=== PATIENT | male | born 2000 | race Two or more races ===

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

== ENCOUNTER 2025-02-06 06:20 | Emergency (ER) | payer BC, SELFPAY ==
[2025-02-06 06:21] VITALS: BMI 29.0
[2025-02-06 06:45] VITALS: BP 145/100; PULSE 77; RESP 20; TEMP 36.6; O2SAT 97
--- NOTE | 2025-02-06 06:46 | XR_ITS ---
Examination: CT abdomen and pelvis without contrast. Coronal 3-D reconstructions. Sagittal 2-D reconstructions. Date and time of exam:February 06, 2025 at 0715 hours INDICATIONS: Onset left-sided flank pain beginning yesterday CTDI: vol (mGy): 7.24 DLP: (mGycm): 450 Technique: Axial images of the abdomen have been obtained, 3 mm slice thickness Intravenous contrast material has not been administered. Low dose protocols were performed. One or more of the following dose reduction techniques were used; automated exposure control, adjustment of the mA and/or KV according to patient size, use of iterative reconstruction technique. Findings: No focal liver or splenic lesions No gallstones No pancreatic or adrenal mass 2 mm lower pole left renal calculus Mild left hydronephrosis, 2 mm proximal left ureteral calculus. No pericecal inflammatory change Urinary bladder wall thickening up to 8 mm Prostate calcification IMPRESSION: Mild left hydronephrosis secondary to 2 mm proximal left ureteral calculus
--- NOTE | 2025-02-06 06:47 | PD.EDRME ---
Rapid Medical Screening Exam RME Arrival date/time: 02/06/25 06:20 24-year-old male presents to the emerged part today complaints of left-sided back pain and left side abdominal pain Chief Complaint: Back Pain/Injury Vital signs: Vital Signs Temperature 97.8 F 02/06/25 06:45 Pulse Rate 77 02/06/25 06:45 Respiratory Rate 20 02/06/25 06:45 Blood Pressure 145/100 H 02/06/25 06:45 Pulse Oximetry (%) 97 02/06/25 06:45 Oxygen Delivery Method Room Air 02/06/25 06:45
[2025-02-06] MEDS: KETOROLAC INJ 30 MG/ML VIAL IM ×2 (07:10→10:48)
[2025-02-06] MEDS: HYDROcodone/APAP 5/325 TABLET 1 TAB PO ×2 (07:10→10:48)
[2025-02-06] MEDS: ONDANSETRON ODT 4 MG TABRAP PO (07:10)
[2025-02-06 07:44] LABS: Basophils # (Auto) 0.1 Thou/mm3 (0.0-0.2); Basophils % (Auto) 1 % (0-2.5); Eosinophils % (Auto) 0 % (0-10); Hematocrit 41.6 % (41.0-53.0); Hemoglobin 15.1 g/dL (13.5-16.0); Immature Granulocytes % (Auto) 1 % (0-0); Immature Granulocytes Auto 0.12 Thou/mm3 (0.00-0.00); Lymphocytes # (Auto) 1.7 Thou/mm3 (1.0-4.8); Lymphocytes % (Auto) 16 % (10-50); Mean Corpuscular HGB Conc 36.3 g/dl (31.0-37.0); Mean Corpuscular Hemoglobin 31.5 pg (25.0-35.0); Mean Corpuscular Volume 87 fL (80-100); Monocytes # (Auto) 0.7 Thou/mm3 (0.0-0.8); Monocytes % (Auto) 7 % (0-12); Neutrophils # (Auto) 7.9 Thou/mm3 (1.8-7.7); Neutrophils % (Auto) 75 % (37-80); Nucleated Red Blood Cell % 0 /100 WBC (0); Platelet Count 269 Thou/mm3 (140-440); RDW Standard Deviation 37.6 fL (35.1-43.9); Red Blood Count 4.79 Miln/mm3 (4.50-5.90); White Blood Count 10.6 Thou/mm3 (3.8-10.6)
[2025-02-06 07:56] LABS: Alanine Aminotransferase 46 U/L (10-49); Albumin, Serum 4.9 gm/dL (3.5-5.0); Albumin/Globulin Ratio 1.6 (1.2-2.2); Alkaline Phosphatase 71 U/L (46-116); Anion Gap 11 (7-16); Aspartate Amino Transferase 22 U/L (0-34); BUN/Creatinine Ratio 8 Ratio (12-20); Blood Urea Nitrogen 9 mg/dL (9-23); Calcium 9.6 mg/dL (8.3-10.6); Calcium (Corrected) 9.6 mg/dL (8.5-10.1); Carbon Dioxide 26.2 mMol/L (20.0-31.0); Chloride 102 mMol/L (98-107); Creatinine (Component) 1.1 mg/dL (0.6-1.3); Estimated Creatinine Clearance 103.9 mL/min (>60); Glucose 103 mg/dL (74-106); Lipase 40 U/L (12-53); Osmolality,Calculated 276 (275-295); Potassium 3.7 mMol/L (3.4-5.1); Sodium 139 mMol/L (136-145); Total Protein 7.9 gm/dL (5.7-8.2); eGFR > 60 See Note
[2025-02-06 08:21] VITALS: BP 138/98
[2025-02-06] MEDS: METOCLOPRAMIDE INJ 5 MG/ML VIAL 2 ML 10 MG IM (08:37)
[2025-02-06 10:18] VITALS: BP 162/102; PULSE 77; RESP 18; TEMP 36.5; O2SAT 100
[2025-02-06 11:09] LABS: Collection Type, Urine Clean Catch
[2025-02-06 11:26] LABS: Bacteria,Urine Rare; Bilirubin,Urine Negative (Negative); Blood,Urine 3+ (Negative); Clarity,Urine Turbid (Clear/Hazy); Color,Urine Yellow (Lt Yel-Yel); Culture Indicated,Urine Not Indicated; Glucose, Urine Negative (Negative); Ketones,Urine Negative (Negative); Leukocyte Esterase,Urine Negative (Negative); Nitrite,Urine Negative (Negative); PH,Urine 6.5 (5.0-7.0); Protein,Urine 1+ (Neg - Trace); RBC,Urine 221 /hpf (0-3); Specific Gravity,Urine 1.026 (1.001-1.035); Squamous Epithelial Cell,Urine < 1 /hpf (0-5); Urobilinogen,Urine Negative mg/dL (0.0-1.0); WBC,Urine 2 /hpf (0-5)
[2025-02-06 11:27] LABS: Amphetamine/Methamp Scrn,U Negative (Negative); Barbiturate Screen,Urine Negative (Negative); Benzodiazepines Screen,Urine Negative (Negative); Benzoylecgonine Screen, Ur Positive (Negative); Fentanyl Screen,Urine Negative (Negative); Opiate Screen,Urine Positive (Negative); THC Screen,Urine Positive (Negative)
--- NOTE | 2025-02-06 11:34 | EDNOTE_ITS ---
ED Back Injury Pain RME/HPI General Chief Complaint: Back Pain/Injury Stated Complaint: LEFT FLANK PAIN,NAUSEA, SINCE YEST Time Seen by Provider: 02/06/25 08:24 Arrival date/time: 02/06/25 06:20 24-year-old male with no significant medical problems presents to the emergency department today complaints of left-sided flank pain patient reports nausea vomiting body aches. Patient reports no fever Limitations: no limitations RME / HPI RME / HPI Narrative: 02/06/25 06:20 24-year-old male presents to the emerged part today complaints of left-sided back pain and left side abdominal pain Related Data Previous Rx's ?Medication ?Instructions ?Recorded ibuprofen 600 mg tablet 600 mg PO Q6HR PRN fever or pain 11/17/19 #30 tabs hydrocodone 5 mg-acetaminophen 325 1 tab PO BID PRN pa in #10 tabs 08/19/21 mg tablet ibuprofen 800 mg tablet 800 mg PO TID PRN pain #30 t abs 08/19/21 ibuprofen 600 mg tablet 600 mg PO Q8H PRN fever or p ain 09/27/21 #30 tabs loperamide 2 mg capsule (Imodium 2 mg PO Q6H PRN loose stool #14 09/27/21 A-D) caps ibuprofen 600 mg tablet 600 mg PO TID PRN pain #30 t abs 09/28/23 ibuprofen 600 mg tablet 600 mg PO Q6H #30 tabs 12/26 ibuprofen 800 mg tablet 800 mg PO TID PRN pain #30 t abs 07/19/24 ibuprofen 600 mg tablet 600 mg PO Q6H PRN pain #30 t abs 09/07/24 hydrocodone 5 mg-acetaminophen 325 1 tab PO BID PRN pa in #10 tabs 02/06/25 mg tablet ibuprofen 800 mg tablet 800 mg PO TID PRN pain #30 t abs 02/06/25 promethazine 12.5 mg rectal 12.5 mg NH Q8HR PRN nausea and 02/06/25 suppository vomiting #12 ea tamsulosin 0.4 mg capsule (Flomax) 0.4 mg PO QDAY 14 d ays #14 caps 02/06/25 Allergies Allergy/AdvReac Type Severity Reaction Status Date / Time No Known Allergies Allergy Verified 02/06/25 06:24 Review of Systems Review of Systems Systems Reviewed: All systems reviewed, normal except as documented Constitutional Constitutional: Reports system reviewed and no additional complaints, except as documented, Denies fever(s) and Denies headache(s) Eyes Eyes: Reports system reviewed and no additional complaints, except as documented and Denies blurry vision ENT Ears, Nose, Mouth, and Throat: Reports system reviewed and no additional complaints, except as documented, Denies headache(s), Denies nasal congestion and Denies nasal discharge Cardiovascular Cardiovascular: Reports system reviewed and no additional complaints, except as documented, Denies chest pain and Denies dyspnea Respiratory Respiratory: Reports system reviewed and no additional complaints, except as documented, Denies chest congestion, Denies cough and Denies dyspnea Gastrointestinal Gastrointestinal: Reports system reviewed and no additional complaints, except as documented, Reports abdominal pain, Reports nausea, Reports vomiting and Reports other (Flank pain) Integumentary/Breasts Skin/Breast: Reports system reviewed and no additional complaints, except as documented and Denies rash Neurologic Neurologic: Reports system reviewed and no additional complaints, except as documented, Reports as per HPI and Denies headache(s) Past Medical History Past Medical History CARDIAC: Negative Congestive Heart Failure RESPIRATORY: Negative Chronic Obstructive Pulmonary Disease (COPD) GENITOURINARY: Negative Renal Disease ENDOCRINE: Negative Diabetes Mellitus Type 1 or Diabetes Mellitus Type 2 PSYCHO/SOCIAL: Positive Recreational Drug Use Social History SMOKING STATUS: Never smoker SUBSTANCE USE: marijuana and crack/cocaine (2 days ago) ED Exam General Limitations: Present no limitations General appearance: Present alert and in no apparent distress Head Head exam: Present atraumatic Eye Eye exam: Present normal appearance, PERRL and EOMI ENT ENT exam: Present normal exam, normal oropharynx and mucous membranes moist Neck Neck exam: Present normal inspection, full ROM and trachea midline Chest Chest inspection: Present normal inspection and symmetric chest wall rise Respiratory Respiratory exam: Present normal lung sounds bilaterally Cardiovascular Cardiovascular exam: Present regular rate, normal rhythm and normal heart sounds Abdominal Exam Abdominal exam: Present soft and normal bowel sounds; Absent distention, tenderness, Khanna's sign, Rovsing's sign or tenderness at McBurney's Point Abdominal tenderness: Absent RUQ or RLQ Extremities Exam Extremities exam: Present normal inspection and full ROM Back Exam Back exam: Present normal inspection and full ROM Neurological Exam Neurological exam: Present alert, oriented X3 and CN II-XII intact Psychiatric Psychiatric exam: Present normal affect and normal mood Skin Skin exam: Present warm, dry, intact and normal color Course Quality Measures none Orders Category Date Time Status Insert IV NOW Care 02/06/25 10:[address] abdomen pelvis wo con Stat Exams 02/06/25 06:46 Completed CBC Stat Lab 02/06/25 07:30 Completed Comprehensive Metabolic Panel Stat Lab 02/06/25 07:30 Completed Drug Screen,Urine Stat Lab 02/06/25 10:59 Completed Lipase Stat Lab 02/06/25 07:30 Completed UA, C/S IF [Urinalysis, C/S if Indicated] Stat Lab 02/06/25 10:59 Completed HYDROcodone*/APAP 5/325 [[place] 5/325] Med 02/06/25 06:46 Discontinued 1 tab PO X1 ONE HYDROcodone*/APAP 5/325 [[place] 5/325] Med 02/06/25 10:21 Discontinued 1 tab PO X1 ONE Ketorolac Inj [Toradol Inj] Med 02/06/25 06:46 Discontinued 30 mg IM X1 ONE Ketorolac Inj [Toradol Inj] Med 02/06/25 10:21 Discontinued 30 mg IM X1 ONE Metoclopramide Inj [Reglan Inj] Med 02/06/25 08:25 Discontinued 10 mg IM X1 ONE Ondansetron Odt [Zofran Odt] Med 02/06/25 06:46 Discontinued 4 mg PO X1 ONE Promethazine Inj [Phenergan Inj] 12.5 mg Med 02/06/25 11:50 Discontinued Sodium Chloride 0.9% [Ns] 50 ml IV X1 Sodium Chloride 0.9% 1000 ml [Ns] 1,000 ml Med 02/06/25 10:56 Discontinued IV 999 mls/hr Sodium Chloride 0.9% 1000 ml [Ns] 1,000 ml Med 02/06/25 12:19 Discontinued IV 999 mls/hr Vital Signs Vital signs: Vital Signs Temperature 97.8 F 02/06/25 06:45 Pulse Rate 77 02/06/25 06:45 Respiratory Rate 20 02/06/25 06:45 Blood Pressure 145/100 H 02/06/25 06:45 Pulse Oximetry (%) 97 02/06/25 06:45 Oxygen Delivery Method Room Air 02/06/25 06:45 O2 saturation 97% room air within normal limits Back Pain / Injury MDM Narrative MDM Narrative:: 24-year-old male with no significant medical problems presents to the emergency department today complaints of left-sided flank pain patient reports nausea vomiting body aches. Patient reports no fever Based on presentation I suspect patient has kidney stone Patient given medication for pain given IV fluids At time reevaluation patient is comfortable and patient walked out without difficulty I explained to the patient that he has a 2 mm stone overwhelming majority of people will pass a stone should he have persistent symptoms or increased pain to return immediately for further evaluation Patient data External records reviewed:: [facility] previous records Clinical information provided by:: patient Social determinants that could affect healthcare access:: none Patient has the following chronic illnesses:: None How is presenting disease/condition affected by chronic disease/condition?: no chronic disease Evaluation data The following diagnostics were reviewed and interpreted by me:: lab results and radiology exam(s) Lab and/or radiology exams considered but not ordered:: Labs radiology obtain Interpretation Summary: Reviewed by me Medications / Prescriptions Medications or Prescriptions considered but not ordered:: Given Medication administrations:: Medication Administration History Discontinued Medications Hydrocodone Bitart/Acetaminophen (Hydrocodone/Apap 5/325 Tablet) 1 tab PO X1 ONE Stop: 02/06/25 06:47 Last Admin: 02/06/25 07:10 Dose: 1 tab Documented By: EE Hydrocodone Bitart/Acetaminophen (Hydrocodone/Apap 5/325 Tablet) 1 tab PO X1 ONE Stop: 02/06/25 10:22 Last Admin: 02/06/25 10:48 Dose: 1 tab Documented By: MARILYNN Sodium Chloride (Ns) 1,000 mls @ 999 mls/hr IV .Q1H1M ONE Stop: 02/06/25 11:56 Last Infusion: 02/06/25 12:52 Dose: Infused Documented By: Admin: 02/06/25 11:38 Dose: 999 mls/hr Documented By: WILLOW Promethazine HCl 12.5 mg/ (Sodium Chloride) 50.5 mls @ 2.5 mls/min IV X1 ONE Stop: 02/06/25 12:10 Last Infusion: 02/06/25 12:25 Dose: Infused Documented By: Admin: 02/06/25 12:02 Dose: 2.5 mls/min Documented By: DB Sodium Chloride (Ns) 1,000 mls @ 999 mls/hr IV .Q1H1M ONE Stop: 02/06/25 13:19 Last Infusion: 02/06/25 13:44 Dose: Infused Documented By: Admin: 02/06/25 12:24 Dose: 999 mls/hr Documented By: WILLOW Ketorolac Tromethamine (Ketorolac Inj 30 Mg/Ml Vial) 30 mg IM X1 ONE Stop: 02/06/25 06:47 Last Admin: 02/06/25 07:10 Dose: 30 mg Documented By: HANS Ketorolac Tromethamine (Ketorolac Inj 30 Mg/Ml Vial) 30 mg IM X1 ONE Stop: 02/06/25 10:22 Last Admin: 02/06/25 10:48 Dose: 30 mg Documented By: MARILYNN Metoclopramide HCl (Metoclopramide Inj 5 Mg/Ml Vial 2 Ml) 10 mg IM X1 ONE; Protocol Stop: 02/06/25 08:26 Last Admin: 02/06/25 08:37 Dose: 10 mg Documented By: ANA CRISTINA Ondansetron HCl (Ondansetron Odt 4 Mg Tabrap) 4 mg PO X1 ONE; Protocol Stop: 02/06/25 06:47 Last Admin: 02/06/25 07:10 Dose: 4 mg Documented By: HANS Given Consultations Consultation(s) initiated? (list below): No Diagnosis Differential diagnosis back pain/injury: lumbar radiculopathy, sciatica, renal colic and pyelonephritis Most likely diagnosis given after review of the tests above:: Renal colic Admission Indicated Admission indicated?: not indicated Admission Request Was there a request for admission?: No Disposition Plan Disposition Plan: Discharge Discharge Attestation Discharge Attestation: The patient and all family members were given an opportunity to ask questions and understood the discharge instructions. Discharge instructions specifically effects, indications for sooner follow up or return to the emergency department, and the expected course of current diagnosis. Patient condition: Stable Discharge Plan Plan Patient Disposition: HOME (Self Care) Disposition Comment: Stable Prescriptions/Referrals Prescriptions/Med Rec: New ibuprofen 800 mg tablet 800 mg PO TID PRN (Reason: pain) Qty: 30 0RF hydrocodone-acetaminophen 5-325 mg tablet 1 tab PO BID MDD 10 PRN (Reason: pain) Qty: 10 0RF promethazine 12.5 mg suppository 12.5 mg NH Q8HR PRN (Reason: nausea and vomiting) Qty: 12 0RF tamsulosin [Flomax] 0.4 mg capsule 0.4 mg PO QDAY 14 Days Qty: 14 0RF No Action ibuprofen 600 mg tablet 600 mg PO Q6HR PRN (Reason: fever or pain) Qty: 30 0RF ibuprofen 800 mg tablet 800 mg PO TID PRN (Reason: pain) Qty: 30 0RF hydrocodone-acetaminophen 5-325 mg tablet 1 tab PO BID MDD 10 PRN (Reason: pain) Qty: 10 0RF ibuprofen 600 mg tablet 600 mg PO Q8H PRN (Reason: fever or pain) Qty: 30 0RF loperamide [Imodium A-D] 2 mg capsule 2 mg PO Q6H PRN (Reason: loose stool) Qty: 14 0RF ibuprofen 600 mg tablet 600 mg PO Q6H Qty: 30 0RF ibuprofen 800 mg tablet 800 mg PO TID PRN (Reason: pain) Qty: 30 0RF ibuprofen 600 mg tablet 600 mg PO TID PRN (Reason: pain) Qty: 30 0RF ibuprofen 600 mg tablet 600 mg PO Q6H PRN (Reason: pain) Qty: 30 0RF Referrals: Astrid Castellanos FNP [Primary Care Provider] - In 1 week Problem List Clinical Impression: Renal colic, Nausea & vomiting Patient/Caregiver Discharge Instructions Education Materials: ED Vomiting (Adult) Additional Instructions: Please follow up with your primary care doctor in the next 24-48hrs for any worsening symptoms return here immediately Print Language: Romanian Stand Alone Forms: Chrissy Award Info., Work/School Release, Patient Portal Info Letter DIVYA/COSME Supervising Physician DIVYA/COSME Supervising Physician: Dr. burris
[2025-02-06] MEDS: SODIUM CHLORIDE 0.9% 1000 ML 1,000 ML 999 ML IV ×2 (11:38→12:24)
[2025-02-06] MEDS: PROMETHAZINE INJ 12.5 MG in SODIUM CHLORIDE 0.9% 50 ML 2.5 MG IV (12:02)
== END 2025-02-06 13:45 | disposition home or self-care (01) ==
PROVIDERS: Nurse Practitioner Primary Care; Emergency Provider Emergency Medicine; PCP Nurse Practitioner Family
DX: N23 Unspecified renal colic (principal); R11.2 Nausea with vomiting, unspecified
CPT/HCPCS: 36415; 74176; 80053; 80307; 81001; 83690; 85025; 96361; 96365; 96372; 99284; J1885; J2550; J2765; J7030; Q0162; A9270